=== PATIENT | male | born 1965 | race Two or more races ===

== ENCOUNTER 2018-04-16 04:43 | Emergency (ER) | payer OTHER ==
[~2018-04-16] VITALS: Ht 180.3 cm; Wt 103.0 kg
[2018-04-16 04:46] VITALS: BP 141/88
[2018-04-16] MEDS ORDERED: fluconazole 150mg tablet PO ONE (05:15)
[2018-04-16] MEDS ORDERED: predniSONE 20 mg tablet PO ONE (05:15)
[2018-04-16] MEDS ORDERED: ipratropium/albuterol 3ml nebule NEB ONE (05:15)
[2018-04-16] MEDS ORDERED: SULF1TAB49 PO (05:19)
[2018-04-16] MEDS ORDERED: ALBU8.5H8 INH (05:19)
[2018-04-16] MEDS ORDERED: FLUC150T66 PO (05:19)
[2018-04-16] MEDS ORDERED: PRED20TA PO (05:19)
[2018-04-16] MEDS ORDERED: sulfamethoxazole/trimethoprim DS (800/160mg) tablet PO ONE (05:20)
== END 2018-04-16 05:43 | disposition home or self-care (01) ==
LOC: ER 04:44
DX: J45.901 Unspecified asthma with (acute) exacerbation (principal); L30.9 Dermatitis, unspecified; F17.200 Nicotine dependence, unspecified, uncomplicated; Z79.2 Long term (current) use of antibiotics; Z79.899 Other long term (current) drug therapy
CPT/HCPCS: 94640; 94760; 99284; J7512

== ENCOUNTER 2018-05-07 14:00 | Emergency (ER) | payer OTHER ==
[~2018-05-07] VITALS: Ht 180.3 cm; Wt 135.1 kg
[~2018-05-07 14:00] MED LIST: ALBU8.5H8 INH; FLUC150T66 PO
[2018-05-07 14:25] VITALS: BP 170/103
== END 2018-05-07 14:39 | disposition left against medical advice (07) ==
LOC: ER 14:00
DX: J45.909 Unspecified asthma, uncomplicated (principal); Z53.21 Procedure and treatment not carried out due to patient leaving prior to being seen by health care provider